=== PATIENT | female | born 1965 | race Two or more races ===

== ENCOUNTER → 2023-10-12 | Emergency (ER) | payer OTHER ==
[~2023-10-12] VITALS: Ht 152.4 cm; Wt 64.4 kg
[~2023-10-12] MED LIST: ARMOUR THYROID15 MG; SIMVASTATIN5 MG PO
== END | disposition home or self-care (01) ==
LOC: ER 00:28
DX: Z53.21 Procedure and treatment not carried out due to patient leaving prior to being seen by health care provider (principal)

== ENCOUNTER → 2025-08-19 | Emergency (ER) | payer OTHER ==
[~2025-08-19] VITALS: Ht 162.6 cm; Wt 63.5 kg
[~2025-08-19] MED LIST changes: +0.9 % SODIUM CHLORIDE 1,000 ML IV STA; +CEFTRIAXONE SODIUM 1,000 MG VIAL IV STA; +CIPRO500 MG PO; +FAMOTIDINE/PF 20 MG/2 ML VIAL IV STA; +KETOROLAC TROMETHAMINE 30 MG VIAL IM STA; +MORPHINE SULFATE 4 MG/ML CARTRIDGE IV STA; +NAPROXEN500 MG PO; +ONDANSETRON HCL 2 MG/ML VIAL IV STA
[2025-08-19 00:59] VITALS: BP 115/72; O2SAT 100
[2025-08-19 03:14] LABS: BASO % 0.8 % (0.1-1.2); EOS # 0.20 (0.04-0.54); EOS % 3.8 % (0.7-7.0); LYMPH # 1.22 (1.18-3.74); LYMPH % 23.2 % (19.3-53.1); MEAN PLATELET VOLUME 9.80 fl (9.4-12.4); MONO # 0.53 (0.24-0.82); MONO % 10.1 % (4.7-12.5); NEUT # 3.25 (1.56-6.13); NEUT % 61.9 % (34.0-71.1); RED CELL DISTRIBUTION WIDTH 12.5 % (11.6-14.4)
[2025-08-19 03:19] LABS: ERYTHROCYTE SEDIMENTATION RATE 8 mm/hr (0-30)
[2025-08-19 03:34] LABS: INR 0.99
[2025-08-19 03:38] LABS: ALT/SGPT 28 U/L (12-78); AST/SGOT 22 U/L (15-37); BILIRUBIN TOTAL 0.37 mg/dL (0.3-1.2); BUN CREA RATIO 26 (7.0-25.0); CREATININE SERUM 0.80 mg/dL (0.55-1.02); GFR 73.41; GLOBULINA 3.2 G/DL (2.4-3.5); GLUCOSE FASTING 120 mg/dL (65-100); OSMOLALITY SERUM 284 MOSM/KG (275-295)
[2025-08-19 04:24] LABS: URINE APPEARANCE Clear; URINE BILIRRUBIN Negative (NEGATIVE); URINE BLOOD Negative; URINE COLOR Yellow; URINE GLUCOSE Negative (NEGATIVE); URINE KETONE Negative (NEGATIVE); URINE LEUKOCYTE Moderate; URINE NITRATE Negative; URINE PROTEIN Negative (NEGATIVE); URINE UROBILINOGEN 1.0 E.U./dl
[2025-08-19 04:25] LABS: URINE BACTERIA 568.7 uL (0.0-1933); URINE EPITHELIAL CELLS 19.8 uL (0.0-38.8); URINE RBC 11.1 uL (0.0-20.8); URINE WBC 482.9 uL (0.0-23.2)
[2025-08-19 04:26] LABS: URINE CAST 0.00 uL (0.0-1.40)
== END | disposition home or self-care (01) ==
LOC: ER
PROVIDERS: Physician Assistant Medical
DX: N39.0 Urinary tract infection, site not specified (principal); Z88.8 Allergy status to other drugs, medicaments and biological substances; R10.20 Pelvic and perineal pain unspecified side; D25.9 Leiomyoma of uterus, unspecified